=== PATIENT | female | born 1970 | race Caucasian/White ===

== ENCOUNTER 2017-07-16 11:03 | Inpatient (IN) | payer SELFPAY ==
[~2017-07-16 11:03] MED LIST: ALBU6.7H INH; ARIP30 PO; DOCU1CAP39 PO; KEPP500T3 PO; LEVO50TA4 PO; METF500 PO; MIRTA15 PO; PANT20 PO; TRAZ50TA4 PO
[2017-07-16] MEDS ORDERED: BENZTROPINE MESYLATE 2 MG/2 ML VIAL IM PRN (14:45)
[2017-07-16] MEDS ORDERED: BENZTROPINE MESYLATE 1 MG TAB PO PRN (14:45)
[2017-07-16] MEDS ORDERED: MAGNESIUM HYDROXIDE SUSP 30 ML CUP PO PRN (14:45)
[2017-07-16] MEDS ORDERED: ALUMINUM/MAGNESIUM/SIMETH 30 ML CUP PO PRN (14:45)
[2017-07-16] MEDS ORDERED: LORazepam 2 MG/ML VIAL IM PRN (14:45)
[2017-07-16] MEDS ORDERED: GLUCAGON 1 MG/ML VIAL OTHER PRN (14:45)
[2017-07-16] MEDS ORDERED: DEXTROSE 50% IN WATER 50 ML VIAL(D50) IV PRN (14:45)
[2017-07-16] MEDS ORDERED: LORazepam 1 MG TAB PO PRN (14:45)
[2017-07-16 15:39] LABS: AUTOMATED NEUTROPHIL # 4.7 TH/MM3 (1.8-7.7); BASOPHIL # 0.1 TH/MM3 (0-0.2); BASOPHIL % 0.6 % (0.0-2.0); EOSINOPHIL # 0.2 TH/MM3 (0-0.4); HEMATOCRIT 39.2 % (35.0-46.0); HEMO FLAGS DIFF FINAL; LYMPH % 42.6 % (9.0-44.0); LYMPHOCYTE # 4.2 TH/MM3 (1.0-4.8); MEAN CELL VOLUME 88.9 FL (80.0-100.0); MEAN CORPUSCULAR HEMOGLOBIN 30.9 PG (27.0-34.0); MEAN CORPUSCULAR HGB CONC 34.7 % (32.0-36.0); MONO % 6.6 % (0.0-8.0); NEUT % 48.2 % (16.0-70.0); PLATELET COUNT 236 TH/MM3 (150-450); RED BLOOD COUNT 4.41 MIL/MM3 (4.00-5.30); RED CELL DISTRIBUTION WIDTH 14.2 % (11.6-17.2); WHITE BLOOD COUNT 9.8 TH/MM3 (4.0-11.0)
[2017-07-16 15:58] LABS: ALT (GPT) 21 U/L (10-53); ANION GAP 9 MEQ/L (5-15); AST (GOT) 31 U/L (15-37); BICARBONATE 23.8 MEQ/L (21.0-32.0); BLOOD UREA NITROGEN 14 MG/DL (7-18); CHLORIDE 96 MEQ/L (98-107); GLOMERULAR FILTRATION RATE 71 ML/MIN (>89); POTASSIUM 4.1 MEQ/L (3.5-5.1); SODIUM (NA) 129 MEQ/L (136-145)
[2017-07-16] MEDS: INSULIN ASPART SUPPLEMENTAL SCALE SQ SCH ×2 (16:00→20:56)
[2017-07-16 16:01] LABS: ALKALINE PHOSPHATASE 60 U/L (45-117); TOTAL BILIRUBIN ADULT 0.9 MG/DL (0.2-1.0)
[2017-07-16] MEDS: metFORMIN HCL 500 MG TAB PO SCH (17:21)
[2017-07-16 18:05] VITALS: BP 103/65; PULSE 60; RESP 18; TEMP 98.2; O2SAT 95
[2017-07-16] MEDS: levETIRAcetam 500 MG TAB PO SCH (20:46)
[2017-07-16] MEDS: diphenhydrAMINE HCL 50 MG CAP PO PRN (20:58)
[2017-07-17] MEDS ORDERED: GABA300C5 PO (05:17)
[2017-07-17] MEDS: LEVOTHYROXINE SODIUM 50 MCG TAB PO SCH (06:00)
[2017-07-17 06:25] VITALS: BP 94/53; PULSE 56; RESP 16; TEMP 99; O2SAT 96
[2017-07-17] MEDS: INSULIN ASPART SUPPLEMENTAL SCALE SQ SCH ×4 (06:25→21:00)
[2017-07-17] MEDS: NICOTINE 21 MG/24 HR PATCH T-DERMAL SCH (09:00)
[2017-07-17] MEDS: REMOVE OLD PATCH T-DERMAL SCH (09:00)
[2017-07-17] MEDS: metFORMIN HCL 500 MG TAB PO SCH (09:18)
[2017-07-17] MEDS: PANTOPRAZOLE SOD 20 MG DELAYED RELEASE TAB PO SCH (09:18)
[2017-07-17] MEDS: levETIRAcetam 500 MG TAB PO SCH ×2 (09:18→22:51)
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
[2017-07-17 11:10] LABS: HDL CHOLESTEROL 23.3 MG/DL (40.0-60.0); LDL CHOLESTEROL 179 MG/DL (0-99)
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
[2017-07-17 16:33] LABS: HEMOGLOBIN A1a 1.1 %; HEMOGLOBIN Ao 81.9 %; HEMOGLOBIN F 1.3 %; HEMOGLOBIN LA1C 2.3 %; HEMOGLOBIN P3 4.2 %
[2017-07-17 18:00] VITALS: BP 101/54; PULSE 68; RESP 16; TEMP 98.7; O2SAT 93
[2017-07-17] MEDS: OLANZapine 5 MG TAB PO SCH (22:50)
[2017-07-17] MEDS: FLUoxetine HCL 20 MG CAP PO SCH (22:51)
[2017-07-18 06:01] VITALS: BP 100/57; PULSE 52; RESP 18; TEMP 98; O2SAT 98
[2017-07-18] MEDS: LEVOTHYROXINE SODIUM 50 MCG TAB PO SCH (06:32)
[2017-07-18] MEDS: INSULIN ASPART SUPPLEMENTAL SCALE SQ SCH ×4 (06:54→20:23)
[2017-07-18] MEDS: NICOTINE 21 MG/24 HR PATCH T-DERMAL SCH (07:35)
[2017-07-18] MEDS: REMOVE OLD PATCH T-DERMAL SCH (07:35)
[2017-07-18] MEDS: levETIRAcetam 500 MG TAB PO SCH ×2 (08:02→20:21)
[2017-07-18] MEDS: PANTOPRAZOLE SOD 20 MG DELAYED RELEASE TAB PO SCH (08:02)
--- NOTE | 2017-07-18 09:51 | HHI.PR ---
Subjective Remarks The patient said that she was tired. She had no acute complaints. She said her blood sugar fluctuates but it has come down some. Objective Vitals Vital Signs Date Time Temp Pulse Resp B/P (MAP) Pulse Ox O2 Delivery O2 Flow Rate FiO2 07/18/17 06:01 98.0 52 18 100/57 (71) 98 07/17/17 18:00 98.7 68 16 101/54 (70) 93 I/O 07/17/17 07/17/17 07/17/17 07/18/17 07/18/17 07/18/17 07:00 15:00 23:00 07:00 15:00 23:00 Intake Total 240 ml 960 ml 830 ml 360 ml Balance 240 ml 960 ml 830 ml 360 ml Intake Oral 240 ml 960 ml 830 ml 360 ml # Voids 3 2 2 2 Result Diagram: 07/16/17 1530 07/16/17 1530 Objective Remarks GENERAL: This is a well-nourished, well-developed patient, in no apparent distress. SKIN: No rashes, ecchymoses or lesions. Cool and dry. HEAD: Atraumatic. Normocephalic. No temporal or scalp tenderness. EYES: Pupils equal round and reactive. Extraocular motions intact. No scleral icterus. No injection or drainage. ENT: Nose without bleeding, purulent drainage or septal hematoma. Poor dentition. NECK: Trachea midline. No JVD or lymphadenopathy. Supple, nontender, no meningeal signs. CARDIOVASCULAR: Regular rate and rhythm. Grade 2 systolic murmur appreciated. RESPIRATORY: Clear to auscultation. Breath sounds equal bilaterally. No wheezes , rales, or rhonchi. GASTROINTESTINAL: Abdomen soft, non-tender, nondistended. No hepato-splenomegaly , or palpable masses. No guarding. MUSCULOSKELETAL: Extremities without clubbing, cyanosis, or edema. No joint tenderness, effusion, or edema noted. NEUROLOGICAL: Awake and alert. Cranial nerves II through XII intact. Motor and sensory grossly within normal limits. Five out of 5 muscle strength in all muscle groups. Normal speech. PSYCH: Mood and affect appropriate. Medications and IVs Current Medications Medications (Trade) Dose Ordered Sig/Jason Route Start Time Stop Time Status Last Admin (Ativan) 1 mg Q6H PRN PO 07/16/17 14:45 (Ativan Inj) 1 mg Q6H PRN IM 07/16/17 14:45 (Benadryl) 50 mg HS PRN PO 07/16/17 14:45 07/16/17 20:58 (Tylenol) 650 mg Q4H PRN PO 07/16/17 14:45 (Milk Of Magnesia Liq) 30 ml DAILY PRN PO 07/16/17 14:45 (Mag-Al Plus Susp Liq) 30 ml Q6H PRN PO 07/16/17 14:45 07/16/17 20:57 (Habitrol 21 Mg Patch.24 Hr) 1 patch DAILY T-DERMAL 07/17/17 09:00 (Cogentin) 1 mg Q12H PRN PO 07/16/17 14:45 (Cogentin Inj) 1 mg Q12H PRN IM 07/16/17 14:45 Miscellaneous Information 1 DAILY T-DERMAL 07/17/17 09:00 (D50w (Vial) Inj) 50 ml UNSCH PRN IV 07/16/17 14:45 (Glucagon Inj) 1 mg UNSCH PRN OTHER 07/16/17 14:45 (NovoLOG SUPPLEMENTAL SCALE) 1 ACHS SLIDING SCALE SQ 07/16/17 16:00 07/17/17 11:59 (Keppra) 500 mg BID PO 07/16/17 21:00 07/18/17 08:02 (Protonix) 20 mg DAILY PO 07/17/17 09:00 07/18/17 08:02 (Synthroid) 50 mcg DAILY@0600 PO 07/17/17 06:00 07/18/17 06:32 (ZyPREXA) 5 mg HS PO 07/17/17 21:00 07/17/17 22:50 (PROzac) 20 mg HS PO 07/17/17 21:00 07/17/17 22:51 A/P Assessment and Plan Depression The pt voices that she doesn't want to live anymore. - management per psychiatry. Seizure disorder The pt is supposed to be on Keppra but has not taken it. She recently ran out of gabapentin. She was hyponatremic on presentation at the OSH, so that may be the main contributing factor. - Keppra has been resumed. Continue. - outpt follow-up with neurology. - seizure precautions. - monitor sodium levels. Hyponatremia Chronic. Sodium stable at 129. - follow BMP. - fluid restriction if needed. - consider salt tabs. Diabetes The pt is on Humulin N/R as an outpt. A1c is 7.7%. Well controlled 07/18. - d/c metformin as the pt states she does not take it. - insulin sliding scale. - diabetic diet. Hyperlipidemia LDL is 179. - Start atorvastatin 20 mg daily. PPx: Ambulation Discharge Planning Per primary Epi Abdul DO Jul 18, 2017 09:51
[2017-07-18] MEDS ORDERED: ATORVASTATIN 20 MG TAB PO SCH (10:00)
--- NOTE | 2017-07-18 13:11 | HHI.PYPN ---
Subjective Remarks Patient complains of being tired. Does not wish to talk. Review of Systems Except as stated in HPI: all other systems reviewed are Neg Objective Alert: Yes [place]: Person, Place, Date, Situation Mood: Calm Affect: Euthymic Memory Intact: Immediate, Recent, Remote Hallucinations: Other Delusions: No Delusion Type: Other Suicidal: Ideation (no) Homicidal: Ideation (no) Insight/Judgment Fair Vitals/IOs Vital Signs Date Time Temp Pulse Resp B/P (MAP) Pulse Ox O2 Delivery O2 Flow Rate FiO2 07/18/17 06:01 98.0 52 18 100/57 (71) 98 Intake and Output 07/18/17 07/18/17 07/18/17 07:59 15:59 23:59 Intake Total 360 ml Balance 360 ml Assessment & Plan Problem List: (1) Bipolar disorder, current episode depressed, severe, without psychotic features ICD Codes: F31.4 - Bipolar disorder, current episode depressed, severe, without psychotic features Assessment & Plan Estimated LOS: days depressed Justification for Cont. Inpt. History of suicidal ideation Evin Villarreal MD Jul 18, 2017 13:11
[2017-07-18] MEDS: INSULIN HUMAN NPH 1,000 UNITS/10 ML VIAL SQ SCH (15:45)
[2017-07-18 17:56] VITALS: BP 101/67; PULSE 78; TEMP 97.6; O2SAT 98
[2017-07-18] MEDS: ATORVASTATIN 20 MG TAB PO SCH (20:21)
[2017-07-18] MEDS: FLUoxetine HCL 20 MG CAP PO SCH (20:21)
[2017-07-18] MEDS: OLANZapine 5 MG TAB PO SCH (20:22)
[2017-07-18 20:23] VITALS: BP 136/89; PULSE 80
[2017-07-19] MEDS: INSULIN ASPART SUPPLEMENTAL SCALE SQ SCH ×4 (05:08→20:38)
[2017-07-19] MEDS: LEVOTHYROXINE SODIUM 50 MCG TAB PO SCH (05:08)
[2017-07-19 06:00] VITALS: BP 90/55; PULSE 49; RESP 18; TEMP 97.6; O2SAT 94
[2017-07-19 06:02] VITALS: PULSE 62
[2017-07-19] MEDS: REMOVE OLD PATCH T-DERMAL SCH (07:09)
[2017-07-19] MEDS: NICOTINE 21 MG/24 HR PATCH T-DERMAL SCH (07:09)
[2017-07-19] MEDS: INSULIN HUMAN NPH 1,000 UNITS/10 ML VIAL SQ SCH (08:00)
[2017-07-19] MEDS: PANTOPRAZOLE SOD 20 MG DELAYED RELEASE TAB PO SCH (08:23)
[2017-07-19] MEDS: levETIRAcetam 500 MG TAB PO SCH ×2 (08:23→20:14)
[2017-07-19 08:28] LABS: BICARBONATE 25.3 MEQ/L (21.0-32.0); POTASSIUM 3.7 MEQ/L (3.5-5.1)
--- NOTE | 2017-07-19 10:10 | HHI.PR ---
Subjective Remarks The patient said that she was concerned about her thyroid function as she had to miss some doses of her levothyroxine at times. She also feels a fluttering/ burning sensation in her throat sometimes. She also mentioned how she was getting kicked out of her own property. Discussed with nursing. Objective Vitals Vital Signs Date Time Temp Pulse Resp B/P (MAP) Pulse Ox O2 Delivery O2 Flow Rate FiO2 07/19/17 06:02 62 07/19/17 06:00 97.6 49 18 90/55 (67) 94 07/18/17 20:23 80 136/89 (105) 07/18/17 17:56 97.6 78 101/67 (78) 98 I/O 07/18/17 07/18/17 07/18/17 07/19/17 07/19/17 07/19/17 07:00 15:00 23:00 07:00 15:00 23:00 Intake Total 360 ml 0 ml 120 ml Balance 360 ml 0 ml 120 ml Intake Oral 360 ml 0 ml 120 ml # Voids 2 1 Result Diagram: 07/16/17 1530 07/19/17 0757 Objective Remarks GENERAL: This is a well-nourished, well-developed patient, in no apparent distress. SKIN: No rashes, ecchymoses or lesions. Cool and dry. HEAD: Atraumatic. Normocephalic. No temporal or scalp tenderness. EYES: Pupils equal round and reactive. Extraocular motions intact. No scleral icterus. No injection or drainage. ENT: Nose without bleeding, purulent drainage or septal hematoma. Poor dentition. NECK: Trachea midline. No JVD or lymphadenopathy. Supple, nontender, no meningeal signs. CARDIOVASCULAR: Regular rate and rhythm. Grade 2 systolic murmur appreciated. RESPIRATORY: Clear to auscultation. Breath sounds equal bilaterally. No wheezes , rales, or rhonchi. GASTROINTESTINAL: Abdomen soft, non-tender, nondistended. No hepato-splenomegaly , or palpable masses. No guarding. MUSCULOSKELETAL: Extremities without clubbing, cyanosis, or edema. No joint tenderness, effusion, or edema noted. NEUROLOGICAL: Awake and alert. Cranial nerves II through XII intact. Motor and sensory grossly within normal limits. Five out of 5 muscle strength in all muscle groups. Normal speech. PSYCH: Anxious. Medications and IVs Current Medications Medications (Trade) Dose Ordered Sig/Jason Route Start Time Stop Time Status Last Admin (Ativan) 1 mg Q6H PRN PO 07/16/17 14:45 (Ativan Inj) 1 mg Q6H PRN IM 07/16/17 14:45 (Benadryl) 50 mg HS PRN PO 07/16/17 14:45 07/16/17 20:58 (Tylenol) 650 mg Q4H PRN PO 07/16/17 14:45 (Milk Of Magnesia Liq) 30 ml DAILY PRN PO 07/16/17 14:45 (Mag-Al Plus Susp Liq) 30 ml Q6H PRN PO 07/16/17 14:45 07/16/17 20:57 (Habitrol 21 Mg Patch.24 Hr) 1 patch DAILY T-DERMAL 07/17/17 09:00 (Cogentin) 1 mg Q12H PRN PO 07/16/17 14:45 (Cogentin Inj) 1 mg Q12H PRN IM 07/16/17 14:45 Miscellaneous Information 1 DAILY T-DERMAL 07/17/17 09:00 (D50w (Vial) Inj) 50 ml UNSCH PRN IV 07/16/17 14:45 (Glucagon Inj) 1 mg UNSCH PRN OTHER 07/16/17 14:45 (NovoLOG SUPPLEMENTAL SCALE) 1 ACHS SLIDING SCALE SQ 07/16/17 16:00 07/18/17 20:23 (Keppra) 500 mg BID PO 07/16/17 21:00 07/19/17 08:23 (Protonix) 20 mg DAILY PO 07/17/17 09:00 07/19/17 08:23 (Synthroid) 50 mcg DAILY@0600 PO 07/17/17 06:00 07/19/17 05:08 (ZyPREXA) 5 mg HS PO 07/17/17 21:00 07/18/17 20:22 (PROzac) 20 mg HS PO 07/17/17 21:00 07/18/17 20:21 (Lipitor) 20 mg HS PO 07/18/17 21:00 07/18/17 20:21 (NovoLIN N INJ) 10 units DAILY@08 SQ 07/18/17 15:45 07/19/17 08:00 A/P Assessment and Plan Depression The pt voices that she doesn't want to live anymore. - management per psychiatry. Seizure disorder The pt is supposed to be on Keppra but has not taken it. She recently ran out of gabapentin. She was hyponatremic on presentation at the OSH, so that may be the main contributing factor. - Keppra has been resumed. Continue. - outpt follow-up with neurology/ PCP. - seizure precautions. - monitor sodium levels. Hyponatremia Chronic. Sodium improved to 134 07/19. - follow BMP as needed. Diabetes The pt is on Humulin N/R as an outpt. A1c is 7.7%. Well controlled 07/19. - d/c metformin as the pt states she does not take it. - NPH 10 units daily. - insulin sliding scale. - diabetic diet. Hyperlipidemia LDL is 179. - Started atorvastatin 20 mg daily. PPx: Ambulation Discharge Planning Per Epi Lees DO Jul 19, 2017 10:10
[2017-07-19 18:43] VITALS: PULSE 63; RESP 17; TEMP 99; O2SAT 94
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
[2017-07-19 20:00] VITALS: BP 95/60
[2017-07-19] MEDS: OLANZapine 5 MG TAB PO SCH (20:14)
[2017-07-19] MEDS: FLUoxetine HCL 20 MG CAP PO SCH (20:14)
[2017-07-19] MEDS: ATORVASTATIN 20 MG TAB PO SCH (20:14)
[2017-07-19] MEDS: ACETAMINOPHEN 325 MG TAB PO PRN (20:14)
[2017-07-19] MEDS: diphenhydrAMINE HCL 50 MG CAP PO PRN (22:02)
[2017-07-20] MEDS: LEVOTHYROXINE SODIUM 50 MCG TAB PO SCH (05:24)
[2017-07-20 05:52] VITALS: BP 94/50; PULSE 50; RESP 16; TEMP 98.2; O2SAT 96
[2017-07-20] MEDS: INSULIN ASPART SUPPLEMENTAL SCALE SQ SCH ×4 (06:00→20:52)
[2017-07-20] MEDS: INSULIN HUMAN NPH 1,000 UNITS/10 ML VIAL SQ SCH (08:00)
[2017-07-20] MEDS: PANTOPRAZOLE SOD 20 MG DELAYED RELEASE TAB PO SCH (08:10)
[2017-07-20] MEDS: REMOVE OLD PATCH T-DERMAL SCH (08:10)
[2017-07-20] MEDS: levETIRAcetam 500 MG TAB PO SCH ×2 (08:10→20:45)
[2017-07-20] MEDS: NICOTINE 21 MG/24 HR PATCH T-DERMAL SCH (08:11)
[2017-07-20] MEDS ORDERED: RESP: ALBUTEROL 2.5 MG/IPRATROPIUM 0.5 MG NEB (SCH) NEB ONE (10:45)
--- NOTE | 2017-07-20 10:46 | HHI.PR ---
Subjective Remarks The patient was hoping she would be discharged soon. She also wanted to be tested for a urinary tract infection. Discussed with nursing. Objective Vitals Vital Signs Date Time Temp Pulse Resp B/P (MAP) Pulse Ox O2 Delivery O2 Flow Rate FiO2 07/20/17 05:52 98.2 50 16 94/50 (65) 96 07/19/17 20:00 95/60 (72) 07/19/17 18:43 99.0 63 17 94 I/O 07/19/17 07/19/17 07/19/17 07/20/17 07/20/17 07/20/17 06:59 14:59 22:59 06:59 14:59 22:59 Intake Total 0 ml 240 ml 600 ml 120 ml 240 ml Balance 0 ml 240 ml 600 ml 120 ml 240 ml Intake Oral 0 ml 240 ml 600 ml 120 ml 240 ml # Voids 1 1 3 Result Diagram: 07/16/17 1530 07/19/17 0757 Objective Remarks GENERAL: This is a well-nourished, well-developed patient, in no apparent distress. SKIN: No rashes, ecchymoses or lesions. Cool and dry. HEAD: Atraumatic. Normocephalic. No temporal or scalp tenderness. EYES: Pupils equal round and reactive. Extraocular motions intact. No scleral icterus. No injection or drainage. ENT: Nose without bleeding, purulent drainage or septal hematoma. Poor dentition. NECK: Trachea midline. No JVD or lymphadenopathy. Supple, nontender, no meningeal signs. CARDIOVASCULAR: Regular rate and rhythm. Grade 2 systolic murmur appreciated. RESPIRATORY: Scattered rhonchi noted. GASTROINTESTINAL: Abdomen soft, non-tender, nondistended. No hepato-splenomegaly , or palpable masses. No guarding. MUSCULOSKELETAL: Extremities without clubbing, cyanosis, or edema. No joint tenderness, effusion, or edema noted. NEUROLOGICAL: Awake and alert. Cranial nerves II through XII intact. Motor and sensory grossly within normal limits. Five out of 5 muscle strength in all muscle groups. Normal speech. PSYCH: Mood and affect appropriate. Medications and IVs Current Medications Medications (Trade) Dose Ordered Sig/Jason Route Start Time Stop Time Status Last Admin (Ativan) 1 mg Q6H PRN PO 07/16/17 14:45 (Ativan Inj) 1 mg Q6H PRN IM 07/16/17 14:45 (Benadryl) 50 mg HS PRN PO 07/16/17 14:45 07/19/17 22:02 (Tylenol) 650 mg Q4H PRN PO 07/16/17 14:45 07/19/17 20:14 (Milk Of Magnesia Liq) 30 ml DAILY PRN PO 07/16/17 14:45 (Mag-Al Plus Susp Liq) 30 ml Q6H PRN PO 07/16/17 14:45 07/16/17 20:57 (Habitrol 21 Mg Patch.24 Hr) 1 patch DAILY T-DERMAL 07/17/17 09:00 (Cogentin) 1 mg Q12H PRN PO 07/16/17 14:45 (Cogentin Inj) 1 mg Q12H PRN IM 07/16/17 14:45 Miscellaneous Information 1 DAILY T-DERMAL 07/17/17 09:00 (D50w (Vial) Inj) 50 ml UNSCH PRN IV 07/16/17 14:45 (Glucagon Inj) 1 mg UNSCH PRN OTHER 07/16/17 14:45 (NovoLOG SUPPLEMENTAL SCALE) 1 ACHS SLIDING SCALE SQ 07/16/17 16:00 07/19/17 20:38 (Keppra) 500 mg BID PO 07/16/17 21:00 07/20/17 08:10 (Protonix) 20 mg DAILY PO 07/17/17 09:00 07/20/17 08:10 (Synthroid) 50 mcg DAILY@0600 PO 07/17/17 06:00 07/19/17 05:08 (ZyPREXA) 5 mg HS PO 07/17/17 21:00 07/19/17 20:14 (PROzac) 20 mg HS PO 07/17/17 21:00 07/19/17 20:14 (Lipitor) 20 mg HS PO 07/18/17 21:00 07/19/17 20:14 (NovoLIN N INJ) 10 units DAILY@08 SQ 07/18/17 15:45 07/20/17 08:00 A/P Assessment and Plan Depression The pt voices that she doesn't want to live anymore. - management per psychiatry. Seizure disorder The pt is supposed to be on Keppra but has not taken it. She recently ran out of gabapentin. She was hyponatremic on presentation at the OSH, so that may be the main contributing factor. - Keppra has been resumed. Continue. - outpt follow-up with neurology/ PCP. - seizure precautions. - monitor sodium levels. Improved. Hyponatremia Chronic. Sodium improved to 134 07/19. - follow BMP as needed. Diabetes The pt is on Humulin N/R as an outpt. A1c is 7.7%. Well controlled 07/20. - d/c metformin as the pt states she does not take it. - NPH 10 units daily. - insulin sliding scale. - diabetic diet. Hyperlipidemia LDL is 179. - Started atorvastatin 20 mg daily. UTI The pt complains of UTI symptoms. - UA pending. PPx: Ambulation Discharge Planning Per Epi Lees DO Jul 20, 2017 10:46
[2017-07-20 12:59] LABS: BLOOD, URINE NEG (NEG); CALCIUM OXALATE CRYSTALS,URINE RARE /hpf; COMMENT (UR) CULT NOT INDICATED; CULTURE IF INDICATED CULT NOT INDICATED; GLUCOSE,URINE 70 mg/dL (NEG); KETONE, URINE NEG (NEG); MUCUS URINE FEW /lpf (OCC); NITRITE,URINE NEG (NEG); URINE COLOR YELLOW (YELLW/STRAW)
--- NOTE | 2017-07-20 14:32 | HHI.PYPN ---
Subjective Remarks Patient seen for follow-up, chart review. Patient found lying on hospital bed, cooperative interview today. Patient states that she had difficulty sleeping over the weekend and that she was mostly "bored". She states that her mood is "a little depressed" but no longer endorsing suicidal ideations. Patient states being worried about where she will go after discharge as she currently left her property to go to a homeless [facility] prior to admission. Patient uncertain whether she will return to a friend's house or be referred to the [facility]. Patient reports tolerating medications well denies any adverse drug reactions. Review of Systems Except as stated in HPI: all other systems reviewed are Neg Objective Alert: Yes [place]: Person, Place, Date, Situation Mood: Calm Affect: Euthymic Memory Intact: Immediate, Recent, Remote Hallucinations: Other Delusions: No Delusion Type: Other Suicidal: Ideation (no) Homicidal: Ideation (no) Insight/Judgment Fair insight, impulse control and judgment Labs Labs reviewed. Test 07/20/17 10:40 Urine Color YELLOW Urine Turbidity CLEAR Urine pH 6.0 Urine Specific [place] 1.013 Urine Protein NEG mg/dL Urine Glucose (UA) 70 mg/dL Urine Ketones NEG mg/dL Urine Occult Blood NEG Urine Nitrite NEG Urine Bilirubin NEG Urine Urobilinogen LESS THAN 2.0 MG/DL Urine Leukocyte Esterase NEG Urine RBC LESS THAN 1 /hpf Urine WBC LESS THAN 1 /hpf Urine Calcium Oxalate Crystals RARE /hpf Urine Mucus FEW /lpf Microscopic Urinalysis Comment CULT NOT INDICATED Vitals/IOs Vital Signs Date Time Temp Pulse Resp B/P (MAP) Pulse Ox O2 Delivery O2 Flow Rate FiO2 07/20/17 05:52 98.2 50 16 94/50 (65) 96 Intake and Output 07/20/17 07/20/17 07/21/17 08:00 16:00 00:00 Intake Total 120 ml 1200 ml Balance 120 ml 1200 ml Assessment & Plan Problem List: (1) Bipolar disorder, current episode depressed, severe, without psychotic features ICD Codes: F31.4 - Bipolar disorder, current episode depressed, severe, without psychotic features Status: Acute Assessment & Plan Patient this time appears to be responding well to current treatment, no longer endorsing suicidality. Patient at this time preoccupied with discharge plan as she currently is homeless but is considering staying with a friend. Continue current treatment, discharge planning in progress Justification for Cont. Inpt. At risk for further decompensation if at lower level of care. Nasim Tadeo MD Jul 20, 2017 14:32
[2017-07-20] MEDS: ACETAMINOPHEN 325 MG TAB PO PRN ×2 (15:18→20:16)
[2017-07-20 19:03] VITALS: BP 102/58; PULSE 57; RESP 18; TEMP 97.9; O2SAT 98
[2017-07-20] MEDS: OLANZapine 5 MG TAB PO SCH (20:45)
[2017-07-20] MEDS: FLUoxetine HCL 20 MG CAP PO SCH (20:45)
[2017-07-20] MEDS: ATORVASTATIN 20 MG TAB PO SCH (20:45)
[2017-07-21] MEDS: LEVOTHYROXINE SODIUM 50 MCG TAB PO SCH (06:00)
[2017-07-21 06:17] VITALS: BP 104/58; PULSE 52; RESP 16; TEMP 97.4; O2SAT 97
[2017-07-21] MEDS: INSULIN ASPART SUPPLEMENTAL SCALE SQ SCH ×2 (06:17→11:00)
--- NOTE | 2017-07-21 08:02 | HHI.PYPN ---
Subjective Remarks Patient seen for follow, chart reviewed. As per nursing report patient continues to feel okay last night did receive Ativan once last evening due to feeling restless. Patient found lying in hospital bed was able to wake a friend of today. Patient states feeling "alright" but continues to feel stressed about where she will be discharged to. Patient states that she may be able stay with her sister which will be confirmed later this afternoon. Patient reports she was feeling restless at night since she has started her medications. Patient reports her mood being "better" denies any suicidality stating "I don't want to and states that she wants live because she has much to live for. Patient denies any perceptual disturbances or delusions. Review of Systems Except as stated in HPI: all other systems reviewed are Neg Objective Alert: Yes [place]: Person, Place, Date, Situation Mood: Calm Affect: Euthymic Memory Intact: Immediate, Recent, Remote Hallucinations: Other Delusions: No Delusion Type: Other Suicidal: Ideation (no) Homicidal: Ideation (no) Insight/Judgment Fair insight, impulse control and judgment Labs Labs reviewed. Test 07/20/17 10:40 Urine Color YELLOW Urine Turbidity CLEAR Urine pH 6.0 Urine Specific [place] 1.013 Urine Protein NEG mg/dL Urine Glucose (UA) 70 mg/dL Urine Ketones NEG mg/dL Urine Occult Blood NEG Urine Nitrite NEG Urine Bilirubin NEG Urine Urobilinogen LESS THAN 2.0 MG/DL Urine Leukocyte Esterase NEG Urine RBC LESS THAN 1 /hpf Urine WBC LESS THAN 1 /hpf Urine Calcium Oxalate Crystals RARE /hpf Urine Mucus FEW /lpf Microscopic Urinalysis Comment CULT NOT INDICATED Vitals/IOs Vital Signs Date Time Temp Pulse Resp B/P (MAP) Pulse Ox O2 Delivery O2 Flow Rate FiO2 07/21/17 06:17 97.4 52 16 104/58 (30) 97 Assessment & Plan Problem List: (1) Bipolar disorder, current episode depressed, severe, without psychotic features ICD Codes: F31.4 - Bipolar disorder, current episode depressed, severe, without psychotic features Status: Acute Assessment & Plan Patient at this time reports improved mood and denies feeling depressed or having any suicidal ideations for the past couple of days. Patient states that she is currently feeling better and plans on continuing treatment upon discharge. Patient is unsure of where she will be discharged to put currently working on this plan. Patient reported some restlessness at night which may be due to side effects of antipsychotic likely akathisia. We will start benztropine 0.5 mg at bedtime for akathisia. Discharge planning in progress Justification for Cont. Inpt. At risk for further decompensation if at lower level of care. Nasim Tadeo MD Jul 21, 2017 08:02
[2017-07-21] MEDS ORDERED: PILL SPLITTER OTHER PRN (08:15)
[2017-07-21] MEDS: REMOVE OLD PATCH T-DERMAL SCH (09:00)
[2017-07-21] MEDS: NICOTINE 21 MG/24 HR PATCH T-DERMAL SCH (09:00)
[2017-07-21] MEDS: levETIRAcetam 500 MG TAB PO SCH (09:16)
[2017-07-21] MEDS: PANTOPRAZOLE SOD 20 MG DELAYED RELEASE TAB PO SCH (09:16)
[2017-07-21] MEDS: INSULIN HUMAN NPH 1,000 UNITS/10 ML VIAL SQ SCH (09:19)
--- NOTE | 2017-07-21 11:07 | HHI.PR ---
Subjective Remarks The patient was resting comfortably. She said she was feeling better. No concerns from nursing. Objective Vitals Vital Signs Date Time Temp Pulse Resp B/P (MAP) Pulse Ox O2 Delivery O2 Flow Rate FiO2 07/21/17 06:17 97.4 52 16 104/58 (73) 97 07/20/17 19:03 97.9 57 18 102/58 (73) 98 I/O 07/20/17 07/20/17 07/20/17 07/21/17 07/21/17 07/21/17 06:59 14:59 22:59 06:59 14:59 22:59 Intake Total 120 ml 1200 ml 240 ml 120 ml Balance 120 ml 1200 ml 240 ml 120 ml Intake Oral 120 ml 1200 ml 240 ml 120 ml # Voids 3 1 2 2 # Bowel Movements 1 Result Diagram: 07/19/17 0757 Objective Remarks GENERAL: This is a well-nourished, well-developed patient, in no apparent distress. SKIN: No rashes, ecchymoses or lesions. Cool and dry. HEAD: Atraumatic. Normocephalic. No temporal or scalp tenderness. EYES: Pupils equal round and reactive. Extraocular motions intact. No scleral icterus. No injection or drainage. ENT: Nose without bleeding, purulent drainage or septal hematoma. Poor dentition. NECK: Trachea midline. No JVD or lymphadenopathy. Supple, nontender, no meningeal signs. CARDIOVASCULAR: Regular rate and rhythm. Grade 2 systolic murmur appreciated. RESPIRATORY: Scattered rhonchi noted. GASTROINTESTINAL: Abdomen soft, non-tender, nondistended. No hepato-splenomegaly , or palpable masses. No guarding. MUSCULOSKELETAL: Extremities without clubbing, cyanosis, or edema. No joint tenderness, effusion, or edema noted. NEUROLOGICAL: Awake and alert. Cranial nerves II through XII intact. Motor and sensory grossly within normal limits. Five out of 5 muscle strength in all muscle groups. Normal speech. PSYCH: Mood and affect appropriate. Medications and IVs Current Medications Medications (Trade) Dose Ordered Sig/Jason Route Start Time Stop Time Status Last Admin (Ativan) 1 mg Q6H PRN PO 07/16/17 14:45 07/21/17 00:21 (Ativan Inj) 1 mg Q6H PRN IM 07/16/17 14:45 (Benadryl) 50 mg HS PRN PO 07/16/17 14:45 07/19/17 22:02 (Tylenol) 650 mg Q4H PRN PO 07/16/17 14:45 07/20/17 20:16 (Milk Of Magnesia Liq) 30 ml DAILY PRN PO 07/16/17 14:45 (Mag-Al Plus Susp Liq) 30 ml Q6H PRN PO 07/16/17 14:45 07/16/17 20:57 (Habitrol 21 Mg Patch.24 Hr) 1 patch DAILY T-DERMAL 07/17/17 09:00 (Cogentin) 1 mg Q12H PRN PO 07/16/17 14:45 (Cogentin Inj) 1 mg Q12H PRN IM 07/16/17 14:45 Miscellaneous Information 1 DAILY T-DERMAL 07/17/17 09:00 07/21/17 09:00 (D50w (Vial) Inj) 50 ml UNSCH PRN IV 07/16/17 14:45 (Glucagon Inj) 1 mg UNSCH PRN OTHER 07/16/17 14:45 (NovoLOG SUPPLEMENTAL SCALE) 1 ACHS SLIDING SCALE SQ 07/16/17 16:00 07/20/17 20:52 (Keppra) 500 mg BID PO 07/16/17 21:00 07/21/17 09:16 (Protonix) 20 mg DAILY PO 07/17/17 09:00 07/21/17 09:16 (Synthroid) 50 mcg DAILY@0600 PO 07/17/17 06:00 07/19/17 05:08 (ZyPREXA) 5 mg HS PO 07/17/17 21:00 07/20/17 20:45 (PROzac) 20 mg HS PO 07/17/17 21:00 07/20/17 20:45 (Lipitor) 20 mg HS PO 07/18/17 21:00 07/20/17 20:45 (NovoLIN N INJ) 10 units DAILY@08 SQ 07/18/17 15:45 07/21/17 09:19 (Cogentin) 0.5 mg HS PO 07/21/17 21:00 (Pill Splitter) 1 ea UNSCH PRN OTHER 07/21/17 08:15 A/P Assessment and Plan Depression The pt voices that she doesn't want to live anymore. - management per psychiatry. Seizure disorder The pt is supposed to be on Keppra but has not taken it. She recently ran out of gabapentin. She was hyponatremic on presentation at the OSH, so that may be the main contributing factor. - Keppra has been resumed. Continue. - outpt follow-up with neurology/ PCP. - seizure precautions. - monitor sodium levels. Improved. Hyponatremia Chronic. Sodium improved to 134 07/19. - follow BMP as needed. Diabetes The pt is on Humulin N/R as an outpt. A1c is 7.7%. Well controlled 07/21. - d/c metformin as the pt states she does not take it. - NPH 10 units daily. - insulin sliding scale. - diabetic diet. Hyperlipidemia LDL is 179. - Started atorvastatin 20 mg daily. UTI The pt complains of UTI symptoms. UA unremarkable. - No treatment indicated. PPx: Ambulation Discharge Planning Per primary Epi Abdul DO Jul 21, 2017 11:07
[2017-07-21] MEDS ORDERED: OLAN5TAB PO (12:20)
[2017-07-21] MEDS ORDERED: ATOR20TA15 PO (12:20)
[2017-07-21] MEDS ORDERED: NOVONP2 SQ (12:20)
[2017-07-21] MEDS ORDERED: LEVO.05 PO (12:20)
[2017-07-21] MEDS ORDERED: PANT20 PO (12:20)
[2017-07-21] MEDS ORDERED: FLUO20CA12 PO (12:20)
[2017-07-21] MEDS ORDERED: LEVE500 PO (12:20)
[2017-07-21] MEDS ORDERED: Benztropine PO (12:20)
[2017-07-21] MEDS ORDERED: BENZTROPINE MESYLATE 1 MG TAB PO SCH (21:00)
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
== END 2017-07-21 13:35 | disposition home or self-care (01) | DRG 885 ==
LOC: H4EA 14:05
PROVIDERS: ADMIT Student in an Organized Health Care Education/Training Program; ATTEND Student in an Organized Health Care Education/Training Program
DX: F31.4 Bipolar disorder, current episode depressed, severe, without psychotic features (principal); R45.851 Suicidal ideations; E87.1 Hypo-osmolality and hyponatremia; N39.0 Urinary tract infection, site not specified; E11.9 Type 2 diabetes mellitus without complications; G40.909 Epilepsy, unspecified, not intractable, without status epilepticus; E03.9 Hypothyroidism, unspecified; Z59.0 Homelessness; G47.00 Insomnia, unspecified; K59.00 Constipation, unspecified; I10 Essential (primary) hypertension; J44.9 Chronic obstructive pulmonary disease, unspecified; F17.210 Nicotine dependence, cigarettes, uncomplicated; Z79.4 Long term (current) use of insulin; E78.5 Hyperlipidemia, unspecified
CPT/HCPCS: 80048; 80053; 80061; 81001; 82948; 83036; 83735; 84100; 84443; 85025; J1815; Q0163

== ENCOUNTER 2018-10-17 15:48 | Inpatient (IN) ==
--- NOTE | 2018-10-17 18:20 | ED ---
HPI General Chief Complaint: Respiratory Symptoms Stated Complaint: flu like symptoms Time Seen by Provider: 10/17/18 18:03 Source: patient Mode of arrival: ambulatory Limitations: no limitations History of Present Illness HPI Narrative: Patient is a 48-year-old smoker here today for productive cough, wheezing, bilateral ear pressure, chest congestion, and wheezing times 2 weeks. No sick contacts that she is aware of. She does smoke approximately pack a day for the last 20 years she does have a known history of COPD and is taking on ANORO as well as albuterol inhaler daily with no relief of symptoms. She is also an insulin-dependent diabetic and takes lisinopril for hypertension. Denies sore throat, body aches, fever, neck pain, chest pain, abdominal pain, back pain. Patient was given albuterol and Atrovent unit dose treatments x3. Decadron 8 mg IM. Rocephin IV and Zithromax. Reexamination patient still has moderate amount of wheezing bilaterally and rhonchi bilaterally. Lactic acid 2.9. Patient will be admitted for pneumonia and acute exacerbation of COPD and hyperglycemia. Novolin R 6 units IV given. Normal saline solution 100 cc an hour. Related Data Home Medications Medication Instructions Recorded Confirmed lisinopril 10 mg PO DAILY 10/17/18 10/17/18 pantoprazole 20 mg PO BID 10/17/18 10/17/18 cyclobenzaprine 10 mg PO HS 10/18/18 10/18/18 gabapentin 300 mg PO TID 10/18/18 10/18/18 insulin NPH isoph U-100 human 10 unit SUBCUT QPM 10/18/18 10/18/18 [Humulin N NPH U-100 Insulin] insulin NPH isoph U-100 human 20 unit SUBCUT QAM 10/18/18 10/18/18 [Humulin N NPH U-100 Insulin] insulin regular human [Humulin R 1 sliding scale dose SUBCUT TID 10/18/18 Regular U-100 Insuln] lactulose 5 g PO DAILY 10/18/18 10/18/18 Allergies Allergy/AdvReac Type Severity Reaction Status Date / Time doxycycline AdvReac Severe VOMITING Verified 10/18/18 10:04 minocycline AdvReac Severe VOMITING Verified 10/18/18 10:04 Tetracyclines AdvReac Severe Vomiting Verified 11/26/18 10:04 tigecycline AdvReac Severe VOMITING Verified 10/18/18 10:04 Review of Systems ROS: all other systems reviewed are negative [facility] Medical History Medical History Diabetes (Acute) GERD (gastroesophageal reflux disease) (Acute) Hypertension (Acute) Social History Social History Substance History: No History of Abuse Smoking Status: Heavy tobacco smoker Tobacco Type: Cigarettes How Often Do You Have a Drink Containing Alcohol: Never Recent Travel in [facility] within the Last 8 Weeks: No Recent Out of Country Travel within the Last 8 Weeks: No Immunization History Tetanus Immunization: <5 Years Exam Narrative Exam Narrative: GENERAL: Pt awake, alert, oriented. No acute distress. SKIN: Focused skin assessment warm/dry. HEAD: Atraumatic. Normocephalic. EYES: Pupils equal and round. No scleral icterus. No injection or drainage. ENT: No nasal bleeding or discharge. Mucous membranes pink and moist. Negative lymphadenopathy bilaterally positive erythema to posterior pharynx no facial pain with palpation. Mild facial tenderness with palpation, denies current dizziness. (+) clear fluid behind TMs bilaterally. TMs pearly grimes. NECK: Trachea midline. No JVD. CARDIOVASCULAR: Regular rate and rhythm. No murmur appreciated. RESPIRATORY: No accessory muscle use. Inspiratory and expiratory wheezing on auscultation. (+) green mucus with coughint and blowing nares. Breath sounds equal bilaterally. GASTROINTESTINAL: Abdomen soft, non-tender, nondistended. Hepatic and splenic margins not palpable. MUSCULOSKELETAL: No obvious deformities. No clubbing. No cyanosis. No edema. NEUROLOGICAL: Awake and alert. No obvious cranial nerve deficits. Motor grossly within normal limits. Normal speech. PSYCHIATRIC: Appropriate mood and affect; insight and judgment normal. Course Initial Documented Vital Signs Temperature 98.2 F 10/17/18 15:52 Pulse Rate 81 10/17/18 15:52 Respiratory Rate 16 10/17/18 15:52 Blood Pressure 136/66 10/17/18 15:52 Pulse Oximetry 95 10/17/18 15:52 Last Documented Vital Signs Temperature 98.3 F 10/18/18 09:58 Pulse Rate 82 10/18/18 09:58 Respiratory Rate 20 10/18/18 09:58 Blood Pressure 130/71 10/18/18 09:58 Pulse Oximetry 94 L 10/18/18 09:58 Medical Decision Making MDM Narrative Medical decision making narrative: Medical decision making narrative: During the course of the patients emergency department visit, the patients history, examination, and differential diagnosis were reviewed with the patient. The patient was placed on a sales technician with oximetry and frequent blood pressure monitoring. The patient was initially provided DuoNeb's x3, chest x-ray, influenza, and steroid injection IM. I went to evaluate her after these were done chest x-ray does show mid pneumonia her influenza test is negative but she is not doing any better after her duo nebs. She states that she still feels very worn down and like she cannot get a good deep breath there is significant wheezing throughout. At that time I ordered IV access CBC CMP lactic acid cultures and will work on getting her admitted we will also give her IV Rocephin and Zithromax. Labs significantly delayed due to need for recollect. Signed patient out to Dr. Verdin at 2300. Patient was seen and examined by me. Patient will be admitted for pneumonia, acute exacerbation COPD and hyperglycemia. Medical Screen Exam Complete: Yes Emergency Medical Condition: Yes Medical Screen Exam Complete: Yes Emergency Medical Condition: Yes Differential Diagnosis Differential Diagnosis: Pneumonia, bronchitis, copd exacerbation, influenza Lab Data Lab results reviewed: Yes I reviewed the patient's lab results. Result diagrams: 10/18/18 03:56 10/18/18 03:56 Lab Results 10/17/18 10/17/18 10/18/18 Range/Units 21:37 21:37 00:06 WBC 11.9 H (4.0-11.0) th/mm3 RBC 4.09 (4.00-5.30) mil/mm3 Hgb 12.5 (11.6-15.3) gm/dL Hct 36.6 (35.0-46.0) % MCV 89.5 (80.0-100.0) fL MCH 30.6 (27.0-34.0) pg MCHC 34.3 (32.0-36.0) % RDW 13.5 (11.6-17.2) % Plt Count 279 (150-450) th/mm3 MPV 8.7 (7.0-11.0) fL Neut % (Auto) 87.0 H (16.0-70.0) % Lymph % (Auto) 11.3 (9.0-44.0) % Ness % (Auto) 1.1 (0.0-8.0) % Eos % (Auto) 0.3 (0.0-4.0) % Baso % (Auto) 0.3 (0.0-2.0) % Neut # (Auto) 10.4 H (1.8-7.7) th/mm3 Lymph # (Auto) 1.3 (1.0-4.8) th/mm3 Ness # (Auto) 0.1 (0.0-0.9) th/mm3 Eos # (Auto) 0.0 (0.0-0.4) th/mm3 Baso # (Auto) 0.0 (0.0-0.2) th/mm3 WBC Differential . Differential Comment Auto diff final Sodium 127 L (136-145) meq/L Potassium 4.2 (3.5-5.1) meq/L Chloride 97 L (98-107) meq/L Carbon Dioxide 22.2 (21.0-32.0) meq/L Anion Gap 8 (5-15) meq/L BUN 5 L (7-18) mg/dL Creatinine 0.93 (0.50-1.00) mg/dL Estimated GFR 64 L (>89) mL/min Random Glucose 516 H* (74-106) mg/dL Lactic Acid 2.9 H (0.4-2.0) mmol/L Calcium 8.3 L (8.5-10.1) mg/dL Total Bilirubin 0.1 L (0.2-1.0) mg/dL AST 17 (15-37) U/L ALT 18 (10-53) U/L Alkaline Phosphatase 80 (45-117) U/L Troponin I Less than 0.02 L (0.02-0.05) ng/mL Total Protein 7.7 (6.4-8.2) g/dL Albumin 3.2 L (3.4-5.0) g/dL TSH 0.836 (0.358-3.740) uIU/mL 10/18/18 10/18/18 10/18/18 Range/Units 03:56 03:56 03:56 WBC 8.8 (4.0-11.0) th/mm3 RBC 3.92 L (4.00-5.30) mil/mm3 Hgb 12.2 (11.6-15.3) gm/dL Hct 35.4 (35.0-46.0) % MCV 90.4 (80.0-100.0) fL MCH 31.1 (27.0-34.0) pg MCHC 34.4 (32.0-36.0) % RDW 13.5 (11.6-17.2) % Plt Count 250 (150-450) th/mm3 MPV 8.0 (7.0-11.0) fL Neut % (Auto) 82.1 H (16.0-70.0) % Lymph % (Auto) 16.6 (9.0-44.0) % Ness % (Auto) 0.8 (0.0-8.0) % Eos % (Auto) 0.0 (0.0-4.0) % Baso % (Auto) 0.5 (0.0-2.0) % Neut # (Auto) 7.2 (1.8-7.7) th/mm3 Lymph # (Auto) 1.5 (1.0-4.8) th/mm3 Ness # (Auto) 0.1 (0.0-0.9) th/mm3 Eos # (Auto) 0.0 (0.0-0.4) th/mm3 Baso # (Auto) 0.0 (0.0-0.2) th/mm3 WBC Differential . Differential Comment Auto diff final Sodium 131 L (136-145) meq/L Potassium 4.2 (3.5-5.1) meq/L Chloride 101 (98-107) meq/L Carbon Dioxide 21.7 (21.0-32.0) meq/L Anion Gap 8 (5-15) meq/L BUN 6 L (7-18) mg/dL Creatinine 0.85 (0.50-1.00) mg/dL Estimated GFR 71 L (>89) mL/min Random Glucose 333 H D (74-106) mg/dL Lactic Acid 3.7 H (0.4-2.0) mmol/L Calcium 8.5 (8.5-10.1) mg/dL Total Bilirubin 0.1 L (0.2-1.0) mg/dL AST 15 (15-37) U/L ALT 19 (10-53) U/L Alkaline Phosphatase 81 (45-117) U/L Troponin I (0.02-0.05) ng/mL Total Protein 7.6 (6.4-8.2) g/dL Albumin 3.2 L (3.4-5.0) g/dL TSH (0.358-3.740) uIU/mL Imaging Data Attestation: I personally reviewed and interpreted this imaging study as follows : Radiologist's impression: Chest X-Ray 10/17/18 18:14 CONCLUSION: Mild patchy pneumonia of both mid and lower lungs. Discharge Plan Discharge Disposition Patient Disposition: 30 Still Patient Discharge Details Diagnosis: Pneumonia, Acute hyperglycemia, COPD with acute exacerbation, Acute hyponatremia Physicians Team ED Provider: Chase Verdin ED Midlevel Provider: Kimberlee Schultz Primary Care Provider: Primary Care Chloé Clarke Attending Provider: Zac Jean Status ED Status: Left Department Discharge Information Discharge Date/Time: 10/18/18 10:52
--- NOTE | 2018-10-17 19:55 | XR ---
EXAM DATE: 10/17/2018 7:42 PM EST AGE/SEX: 48 years / Female INDICATIONS: . Cough. CLINICAL DATA: This is the patient's initial encounter. Patient reports that signs and symptoms have been present for 2 weeks and indicates a pain score of 0/10. MEDICAL/SURGICAL HISTORY: None. None. COMPARISON: [facility] [place], CHEST SINGLE AP, 03/13/2016. . FINDINGS: Mild patchy airspace opacities involve both lungs, mostly mid and lower lung zones. No dense or confl uent consolidation. No pleural effusion. No pneumothorax. Normal, stable heart size. Mild S shaped thoracolumbar curvature unchanged. CONCLUSION: Mild patchy pneumonia of both mid and lower lungs. Electronically signed by: Edson Negro MD 10/17/2018 7:53 PM EST
[2018-10-17] MEDS ORDERED: Azithromycin Inj 500 MG in Sodium Chlor 0.9% Inj 250 ML IV.SIG SCH (22:00)
[2018-10-17 22:21] LABS: Baso % (Auto) 0.3 % (0.0-2.0); Eos % (Auto) 0.3 % (0.0-4.0); Hematocrit 36.6 % (35.0-46.0); Hemoglobin 12.5 gm/dL (11.6-15.3); Lymph # (Auto) 1.3 th/mm3 (1.0-4.8); Lymph % (Auto) 11.3 % (9.0-44.0); Mean Corpuscular HGB Conc 34.3 % (32.0-36.0); Mean Corpuscular Hemoglobin 30.6 pg (27.0-34.0); Mean Corpuscular Volume 89.5 fL (80.0-100.0); Mean Platelet Volume 8.7 fL (7.0-11.0); Mono # (Auto) 0.1 th/mm3 (0.0-0.9); Mono % (Auto) 1.1 % (0.0-8.0); Neut # (Auto) 10.4 th/mm3 (1.8-7.7); Platelet Count 279 th/mm3 (150-450); Red Blood Count 4.09 mil/mm3 (4.00-5.30); Red Cell Distribution Width 13.5 % (11.6-17.2); White Blood Count 11.9 th/mm3 (4.0-11.0)
[2018-10-18 00:58] LABS: Alanine Aminotransferase 18 U/L (10-53); Albumin 3.2 g/dL (3.4-5.0); Alkaline Phosphatase 80 U/L (45-117); Anion Gap 8 meq/L (5-15); Aspartate Aminotransferase 17 U/L (15-37); Blood Urea Nitrogen 5 mg/dL (7-18); Calcium 8.3 mg/dL (8.5-10.1); Carbon Dioxide 22.2 meq/L (21.0-32.0); Chloride 97 meq/L (98-107); Glomerular Filtration Rate 64 mL/min (>89); Glucose,Random 516 mg/dL (74-106); Potassium 4.2 meq/L (3.5-5.1); Sodium 127 meq/L (136-145); Thyroid Stimulating Hormone 0.836 uIU/mL (0.358-3.740); Total Protein 7.7 g/dL (6.4-8.2)
[2018-10-18] MEDS ORDERED: Benzonatate 100 MG Capsule PO ONE (01:01)
[2018-10-18] MEDS ORDERED: Bisacodyl 10 MG Supp RECTAL PRN (01:29)
[2018-10-18] MEDS ORDERED: Dextrose 50% in Water 50 ML Vial IV.PUSH PRN (01:29)
[2018-10-18] MEDS ORDERED: Acetaminophen 325 MG Tablet PO PRN (01:29)
[2018-10-18] MEDS: Sod Chloride 0.9% Inj 1,000 ML IV.CONT SCH ×3 (01:40→21:38)
--- NOTE | 2018-10-18 02:46 | P.HPIM ---
History of Present Illness Primary Care Physician: No Primary Care Physician History of Present Illness: This is a 48-year-old female with a PMH of HTN, DM, COPD, Tobacco Abuse and GERD who presented to the ER with complaints of SOB and wheezing for approx 2wks. Has been using home Neb/MDI w/ minimal relief. Notes associated productive cough w/ yellow-colored sputum. Denies chest pain, fever, chills or sick contacts. On arrival, BP 136/66, HR 81, O2 sat 95% on RA, Afebrile. WBC 11.9. Na 127. BS 516. Lactic Acid 2.9. Troponin negative. CXR with mild patchy pneumonia of mid and lower lungs. S/p DuoNeb, Solu-Medrol, Rocephin/ Zithro in ER. - Diagnosis (1) PNA (pneumonia) (2) COPD (chronic obstructive pulmonary disease) (3) Lactic acidosis (4) DM (diabetes mellitus) Inpatient Certification: I certify that the inpatient services were ordered in accordance with Medicare regulations governing the order. This includes certification that hospital inpatient services are reasonable and necessary and in the case of services not specified as inpatient-only under 42 CFR 419.22(n), that they are appropriately provided as inpatient services in accordance to with the 2-midnight benchmark under 43 CFR 412.3(e) Estimated Total Length of Stay (Days): 2 Plans for Post Hospital Care: Not yet determined Review of Systems PAST FAMILY HISTORY: Reviewed. No h/o DM or CAD All other systems reviewed negative except as stated in HPI [facility] - History History Provided By: Patient - Medical History Medical History: Medical History (Last Updated 10/17/18 @ 18:10 by Judy Dent) Diabetes GERD (gastroesophageal reflux disease) Hypertension - Tobacco History Tobacco Use In Past 30 Days: Yes Smoking Status: Heavy tobacco smoker Tobacco Type: Cigarettes - Alcohol History How Often Do You Have a Drink Containing Alcohol: Never - Substance Use History Substance History: No History of Abuse - Travel History Recent Travel in the [place] Within the Last 8 Weeks: No Recent Travel Out of the Country Within the Last 8 Weeks: No - Immunization History Tetanus Immunization: <5 Years Medications and Allergies Active Medications: Active Medications Acetaminophen (Tylenol) 650 mg PO Q4H PRN PRN Reason: Temp > 100.4 Al Hydroxide/Mg Hydroxide (Milk Of Magnesia Liq) 30 ml PO Q12H PRN PRN Reason: Mild Constipation Albuterol (Duoneb Neb (Prn)) 1 ampul NEB Q4HR NEB PRN PRN Reason: SOB/WHEEZING Bisacodyl (Dulcolax Supp) 10 mg RECTAL DAILY PRN PRN Reason: SEVERE CONSITIPATION Budesonide/Formoterol Fumarate (Symbicort 160/4.5 Mcg Inh) 2 puff INH BID ROHIT Dextrose (D50w Vial) 50 ml IV.PUSH UNSCH PRN PRN Reason: PER HYPOGLYCEMIA PROTOCOL Glucagon (Glucagon Inj) 1 mg OTHER PRN PRN PRN Reason: for Hypoglycemia Protocol Guaifenesin (Mucinex Er) 600 mg PO BID ROHIT Ceftriaxone Sodium 2,000 mg/ (Sodium Chloride) 100 mls @ 200 mls/hr IV.SIG Q24H ROHIT Last Infusion: 10/17/18 23:10 Dose: Infused Azithromycin 500 mg/ Sodium (Chloride) 250 mls @ 250 mls/hr IV.SIG Q24H ROHIT Last Infusion: 10/18/18 01:15 Dose: Infused Sodium Chloride (Ns Inj) 1,000 mls @ 100 mls/hr IV.CONT .Q10H ROHIT Last Admin: 10/18/18 01:40 Dose: 100 mls/hr Azithromycin 500 mg/ Sodium (Chloride) 250 mls @ 250 mls/hr IV.SIG Q24H ROHIT Ceftriaxone Sodium 1,000 mg/ (Sodium Chloride) 100 mls @ 200 mls/hr IV.SIG Q24H ROHIT Insulin Aspart (Novolog Insulin Correctional Sugar Inj) 0 unit SQ ACHS ROHIT; Protocol Lactulose (Lactulose Liq) 30 ml PO DAILY PRN PRN Reason: SEVERE CONSITIPATION Methylprednisolone Sodium Succinate (Solumedrol Inj) 40 mg IV.PUSH Q6H ROHIT Ondansetron HCl (Zofran Inj) 4 mg IV.PUSH Q6H PRN PRN Reason: NAUSEA OR VOMITING Senna/Docusate Sodium (Maite-Colace) 1 tab PO BID ROHIT Sennosides (Senokot) 17.2 mg PO Q12H PRN PRN Reason: Moderate Constipation Allergies Allergy/AdvReac Type Severity Reaction Status Date / Time doxycycline AdvReac Severe VOMITING Unverified 07/07/17 14:14 minocycline AdvReac Severe VOMITING Unverified 07/07/17 14:14 tigecycline AdvReac Severe VOMITING Unverified 07/07/17 14:14 Home Medications Medication Instructions Recorded Confirmed Type lisinopril 10 mg PO DAILY 10/17/18 10/17/18 History pantoprazole 20 mg PO BID 10/17/18 10/17/18 History Exam Vital signs: Vital Signs 10/17/18 15:52 10/17/18 21:51 10/17/18 23:29 Temperature 98.2 F Pulse Rate 81 76 86 Respiratory Rate 16 19 21 Blood Pressure 136/66 133/69 Pulse Oximetry 95 96 Intake & Output 10/17/18 10/17/18 10/18/18 06:59 18:59 06:59 Intake Total 350 / 350 Balance 350 / 350 Weight 63.503 kg Intake: IV 350 / 350 Azithromycin Inj 500 MG In NS 250 / 250 Inj 250 ML @ 250 mls/hr IV.SIG Q24H ROHIT Rx#:[id number] Rocephin Inj 2,000 MG In NS Inj 100 / 100 100 ML @ 200 mls/hr IV.SIG Q24H ROHIT Rx#:[id number] Narrative: PE: GENERAL: Middle-aged white female in no acute distress. SKIN: Focused skin assessment warm and dry. HEENT: PERRLA, EOMI. No scleral icterus or conjunctival pallor. No lid lag or facial droop. CARDIOVASCULAR: Regular rate and rhythm. No obvious murmurs to auscultation. No chest tenderness to palpation. RESPIRATORY: No obvious rhonchi. Occasional wheezing. Breath sounds equal bilaterally. GASTROINTESTINAL: Abdomen soft, non-tender, nondistended. BS normal. MUSCULOSKELETAL: Extremities without clubbing, cyanosis, or edema. No obvious deformities. NEUROLOGICAL: Awake, alert and oriented x4. No focal neurologic deficits. Moving both upper and lower extremities spontaneously. PSYCHIATRIC: Appropriate mood and affect. Insight and judgment normal. Results - Labs CBC & Chem 7: 10/17/18 21:37 10/18/18 00:06 Labs: Short CBC 10/17/18 Range/Units 21:37 WBC 11.9 H (4.0-11.0) th/mm3 Hgb 12.5 (11.6-15.3) gm/dL Hct 36.6 (35.0-46.0) % Plt Count 279 (150-450) th/mm3 BMP 10/18/18 00:06 Sodium 127 L Potassium 4.2 Chloride 97 L Carbon Dioxide 22.2 BUN 5 L Creatinine 0.93 Calcium 8.3 L Cardiac Enzymes 10/18/18 Range/Units 00:06 Troponin I Less than 0.02 L (0.02-0.05) ng/mL Liver Function 10/18/18 Range/Units 00:06 Total Bilirubin 0.1 L (0.2-1.0) mg/dL AST 17 (15-37) U/L ALT 18 (10-53) U/L Alkaline Phosphatase 80 (45-117) U/L Albumin 3.2 L (3.4-5.0) g/dL - Imaging Impressions Chest X-Ray 10/17/18 18:14 CONCLUSION: Mild patchy pneumonia of both mid and lower lungs. Caprini VTE Risk Assessment Caprini VTE Risk Assessment: No/Low Risk (score <= 1) Caprini Risk Assessment Model: Point Value = 1 Point Value = 2 Point Value = 3 Point Value = 5 Age 41-60 Minor surgery BMI > 25 kg/m2 Swollen legs Varicose veins or History of unexplained or recurrent spontaneous Oral contraceptives or hormone replacement Sepsis (< 1 month) Serious lung disease, including pneumonia (< 1 month) Abnormal pulmonary function Acute myocardial infarction Congestive heart failure (< 1 month) History of inflammatory bowel disease Medical patient at bed rest Age 61-74 Arthroscopic surgery Major open surgery (> 45 min) Laparoscopic surgery (> 45 min) Malignancy Confined to bed (> 72 hours) Immobilizing plaster cast Central venous access Age >= 75 History of VTE Family history of VTE Factor V Leiden Prothrombin [id number] Lupus anticoagulant Anticardiolipin antibodies Elevated serum homocysteine Heparin-induced thrombocytopenia Other congenital or acquired thrombophilia Stroke (< 1 month) Elective arthroplasty Hip, pelvis, or leg fracture Acute spinal cord injury (< 1 month) Prophylaxis Regimen: Total Risk Factor Score Risk Level Prophylaxis Regimen 0-1 Low Early ambulation 2 Moderate Order ONE of the following: *Sequential Compression Device (SCD) *Heparin 5000 units SQ BID 3-4 Higher Order ONE of the following medications: *Heparin 5000 units SQ TID *Enoxaparin/Lovenox 40 mg SQ daily (WT < 150 kg, CrCl > 30 mL/min) *Enoxaparin/Lovenox 30 mg SQ daily (WT < 150 kg, CrCl > 10-29 mL/min) *Enoxaparin/Lovenox 30 mg SQ BID (WT < 150 kg, CrCl > 30 mL/min) AND/OR *Sequential Compression Device (SCD) 5 or more Highest Order ONE of the following medications: *Heparin 5000 units SQ TID (Preferred with Epidurals) *Enoxaparin/Lovenox 40 mg SQ daily (WT < 150 kg, CrCl > 30 mL/min) *Enoxaparin/Lovenox 30 mg SQ daily (WT < 150 kg, CrCl > 10-29 mL/min) *Enoxaparin/Lovenox 30 mg SQ BID (WT < 150 kg, CrCl > 30 mL/min) AND *Sequential Compression Device (SCD) Assessment and Plan - Assessment (1) PNA (pneumonia) Code(s): J18.9 - Pneumonia, unspecified organism Status: Acute (2) COPD (chronic obstructive pulmonary disease) Code(s): J44.9 - Chronic obstructive pulmonary disease, unspecified Status: Acute (3) Lactic acidosis Code(s): E87.2 - Acidosis Status: Acute (4) DM (diabetes mellitus) Code(s): E11.9 - Type 2 diabetes mellitus without complications Status: Acute - Plan A/P: 1. PNA: CXR w/ patchy pneumonia both mid and lower lungs, images reviewed, s/ p Rocephin/Zithro in ER, will continue w/ IV Abx, check Sputum Cultures. 2. COPD: Chronic Respiratory Failure w/ Acute Exacerbation. Moderate. S/p Solu-Medrol and DuoNeb w/ persistent SOB/wheezing, continue w/ Solu-Medrol q6h, DuoNeb, Symbicort, Mucinex. Monitor O2. 3. Lactic Acidosis: Lactic Acid 2.9, likely due to dehydration from respiratory losses, no evidence of overt sepsis at this time, IVF, repeat Lactic Acid. 4. DM: Uncontrolled. BS 516 on arrival, states she takes Humulin N 40u in am , and Humulin R sliding scale. Check Hgb A1c, sliding scale w/ Accu-Cheks. 5. DVT Prophylaxis: SCD/Teds 6. Social work for d/c planning as needed. 7. Case discussed w/ ER physician at length, labs/records/imaging reviewed by me.
[2018-10-18] MEDS: MethylPREDNISolone Sod Succinate Inj 40 MG/ML Vial IV.PUSH SCH ×4 (02:54→21:24)
[2018-10-18 04:08] LABS: Baso % (Auto) 0.5 % (0.0-2.0); Hematocrit 35.4 % (35.0-46.0); Hemoglobin 12.2 gm/dL (11.6-15.3); Lymph # (Auto) 1.5 th/mm3 (1.0-4.8); Lymph % (Auto) 16.6 % (9.0-44.0); Mean Corpuscular HGB Conc 34.4 % (32.0-36.0); Mean Corpuscular Hemoglobin 31.1 pg (27.0-34.0); Mean Corpuscular Volume 90.4 fL (80.0-100.0); Mono # (Auto) 0.1 th/mm3 (0.0-0.9); Mono % (Auto) 0.8 % (0.0-8.0); Neut # (Auto) 7.2 th/mm3 (1.8-7.7); Neut % (Auto) 82.1 % (16.0-70.0); Platelet Count 250 th/mm3 (150-450); Red Blood Count 3.92 mil/mm3 (4.00-5.30); Red Cell Distribution Width 13.5 % (11.6-17.2); White Blood Count 8.8 th/mm3 (4.0-11.0)
[2018-10-18 04:38] LABS: Albumin 3.2 g/dL (3.4-5.0); Anion Gap 8 meq/L (5-15); Aspartate Aminotransferase 15 U/L (15-37); Blood Urea Nitrogen 6 mg/dL (7-18); Calcium 8.5 mg/dL (8.5-10.1); Carbon Dioxide 21.7 meq/L (21.0-32.0); Chloride 101 meq/L (98-107); Glomerular Filtration Rate 71 mL/min (>89); Glucose,Random 333 mg/dL (74-106); Potassium 4.2 meq/L (3.5-5.1); Sodium 131 meq/L (136-145)
[2018-10-18 04:43] LABS: Alanine Aminotransferase 19 U/L (10-53); Alkaline Phosphatase 81 U/L (45-117); Total Protein 7.6 g/dL (6.4-8.2)
[2018-10-18] MEDS: Insulin NovoLOG Aspart Correctional Sugar Inj SQ SCH ×4 (08:17→21:24)
[2018-10-18] MEDS: guaiFENesin 600 MG ER Tablet PO SCH ×2 (10:05→21:24)
[2018-10-18] MEDS: Senna/Docusate Sodium 8.6/50 MG Tablet PO SCH ×2 (10:05→21:24)
[2018-10-18] MEDS: Budesonide-Formoterol 160/4.5 MCG 6 GM Inhaler INH SCH ×2 (10:33→21:38)
[2018-10-18 12:48] LABS: Hemoglobin A1c 7.7 % (4.3-6.0)
[2018-10-18] MEDS ORDERED: Pantoprazole Sodium 20 MG DR Tablet PO ONE (16:15)
[2018-10-18] MEDS ORDERED: Aluminum/Magnesium/Simethacone Susp 30 ML UDC PO PRN (16:46)
[2018-10-18] MEDS ORDERED: Melatonin 5 MG Tablet PO PRN (16:49)
--- NOTE | 2018-10-18 16:56 | P.PN ---
Subjective Interval history: Follow-up diabetes mellitus and pneumonia. Hyperglycemic on NPH. Denies SOB Physical Exam Vital signs: Vital Signs 10/17/18 21:51 10/17/18 23:29 10/18/18 06:31 Temperature Pulse Rate 76 86 75 Respiratory Rate 19 18 Blood Pressure 133/69 121/63 Pulse Oximetry 96 94 L 10/18/18 09:58 Temperature 98.3 F Pulse Rate 82 Respiratory Rate 20 Blood Pressure 130/71 Pulse Oximetry 94 L Intake & Output 10/17/18 10/18/18 10/18/18 18:59 06:59 18:59 Intake Total 350 / 350 1000 / 1000 Balance 350 / 350 1000 / 1000 Weight 63.503 kg 63.893 kg Intake: IV 350 / 350 1000 / 1000 NS Inj 1,000 ML @ 100 mls/hr IV 1000 / 1000 .CONT .Q10H ROHIT Rx#:[id number] Azithromycin Inj 500 MG In NS 250 / 250 Inj 250 ML @ 250 mls/hr IV.SIG Q24H ROHIT Rx#:[id number] Rocephin Inj 2,000 MG In NS Inj 100 / 100 100 ML @ 200 mls/hr IV.SIG Q24H ROHIT Rx#:[id number] Other: Weight On Admission 63.893 kg Narrative: GENERAL: Middle-aged white female in no acute distress. SKIN: Focused skin assessment warm and dry. CARDIOVASCULAR: Regular rate and rhythm. No obvious murmurs to auscultation. No chest tenderness to palpation. RESPIRATORY: No obvious rhonchi. Breath sounds equal bilaterally. GASTROINTESTINAL: Abdomen soft, non-tender, nondistended. BS normal. MUSCULOSKELETAL: Extremities without clubbing, cyanosis, or edema. No obvious deformities. NEUROLOGICAL: Awake, alert and oriented x4. No focal neurologic deficits. Moving both upper and lower extremities spontaneously. PSYCHIATRIC: Appropriate mood and affect. Insight and judgment normal. Results - Labs CBC & Chem 7: 10/18/18 03:56 10/18/18 03:56 Laboratory Results - last 24 hr 10/17/18 10/17/18 10/18/18 21:37 21:37 00:06 WBC 11.9 H RBC 4.09 Hgb 12.5 Hct 36.6 MCV 89.5 MCH 30.6 MCHC 34.3 RDW 13.5 Plt Count 279 MPV 8.7 Neut % (Auto) 87.0 H Lymph % (Auto) 11.3 [place] % (Auto) 1.1 Eos % (Auto) 0.3 Baso % (Auto) 0.3 Neut # (Auto) 10.4 H Lymph # (Auto) 1.3 [place] # (Auto) 0.1 Eos # (Auto) 0.0 Baso # (Auto) 0.0 WBC Differential . Differential Comment Auto diff final Sodium 127 L Potassium 4.2 Chloride 97 L Carbon Dioxide 22.2 Anion Gap 8 BUN 5 L Creatinine 0.93 Estimated GFR 64 L POC Glucose Random Glucose 516 H* Lactic Acid 2.9 H Calcium 8.3 L Total Bilirubin 0.1 L AST 17 ALT 18 Alkaline Phosphatase 80 Troponin I Less than 0.02 L Total Protein 7.7 Albumin 3.2 L TSH 0.836 10/18/18 10/18/18 10/18/18 03:56 03:56 03:56 WBC 8.8 RBC 3.92 L Hgb 12.2 Hct 35.4 MCV 90.4 MCH 31.1 MCHC 34.4 RDW 13.5 Plt Count 250 MPV 8.0 Neut % (Auto) 82.1 H Lymph % (Auto) 16.6 [place] % (Auto) 0.8 Eos % (Auto) 0.0 Baso % (Auto) 0.5 Neut # (Auto) 7.2 Lymph # (Auto) 1.5 [place] # (Auto) 0.1 Eos # (Auto) 0.0 Baso # (Auto) 0.0 WBC Differential . Differential Comment Auto diff final Sodium 131 L Potassium 4.2 Chloride 101 Carbon Dioxide 21.7 Anion Gap 8 BUN 6 L Creatinine 0.85 Estimated GFR 71 L POC Glucose Random Glucose 333 H D Lactic Acid 3.7 H Calcium 8.5 Total Bilirubin 0.1 L AST 15 ALT 19 Alkaline Phosphatase 81 Troponin I Total Protein 7.6 Albumin 3.2 L TSH 10/18/18 11:42 WBC RBC Hgb Hct MCV MCH MCHC RDW Plt Count MPV Neut % (Auto) Lymph % (Auto) [place] % (Auto) Eos % (Auto) Baso % (Auto) Neut # (Auto) Lymph # (Auto) [place] # (Auto) Eos # (Auto) Baso # (Auto) WBC Differential Differential Comment Sodium Potassium Chloride Carbon Dioxide Anion Gap BUN Creatinine Estimated GFR POC Glucose 416 H Random Glucose Lactic Acid Calcium Total Bilirubin AST ALT Alkaline Phosphatase Troponin I Total Protein Albumin TSH Microbiology 10/17/18 21:30 Blood - Peripheral Aerobic Blood Culture - Preliminary No growth in 1 day 10/17/18 21:30 Blood - Peripheral Anaerobic Blood Culture - Preliminary No growth in 1 day 10/17/18 21:37 Blood - Peripheral Aerobic Blood Culture - Preliminary No growth in 1 day 10/17/18 21:37 Blood - Peripheral Anaerobic Blood Culture - Preliminary No growth in 1 day 10/17/18 18:35 Nasal Wash Influenza Types A,B Antigen - Final Negative for FLU A and B antigen Infection due to influenza A or B cannot be ruled out since the antigen present in the sample may be below the detection limit of the test. - Imaging Impressions Chest X-Ray 10/17/18 18:14 CONCLUSION: Mild patchy pneumonia of both mid and lower lungs. - Procedures none Assessment and Plan - Assessment (1) PNA (pneumonia) Code(s): J18.9 - Pneumonia, unspecified organism Status: Acute (2) COPD (chronic obstructive pulmonary disease) Code(s): J44.9 - Chronic obstructive pulmonary disease, unspecified Status: Acute (3) Lactic acidosis Code(s): E87.2 - Acidosis Status: Acute (4) DM (diabetes mellitus) Code(s): E11.9 - Type 2 diabetes mellitus without complications Status: Acute - Plan 1. PNA: CXR w/ patchy pneumonia both mid and lower lungs, images reviewed, s/ p Rocephin/Zithro in ER, will continue w/ IV Abx, check Sputum Cultures, urinary pneumococcal and Legionella antigen. 2. COPD: Chronic Respiratory Failure w/ Acute Exacerbation. Moderate. S/p Solu-Medrol and DuoNeb w/ persistent SOB/wheezing, continue w/ Solu-Medrol q6h, DuoNeb, Symbicort, Mucinex. Monitor O2. 3. Lactic Acidosis: Lactic Acid 2.9, likely due to dehydration from respiratory losses, no evidence of overt sepsis at this time, IVF, repeat Lactic Acid. 4. DM: Uncontrolled. BS 516 on arrival, states she takes NPH, and Humulin R sliding scale. Check Hgb A1c, sliding scale w/ Accu-Cheks. 5. DVT Prophylaxis: SCD/Teds
[2018-10-18] MEDS: Gabapentin 300 MG Capsule PO SCH (17:37)
[2018-10-18] MEDS ORDERED: Azithromycin Inj 500 MG in Sodium Chlor 0.9% Inj 250 ML IV.SIG SCH (21:00)
[2018-10-18] MEDS: Pantoprazole Sodium 20 MG DR Tablet PO SCH (21:24)
[2018-10-19] MEDS: MethylPREDNISolone Sod Succinate Inj 40 MG/ML Vial IV.PUSH SCH ×2 (05:43→13:15)
[2018-10-19] MEDS: Budesonide-Formoterol 160/4.5 MCG 6 GM Inhaler INH SCH (08:18)
[2018-10-19] MEDS: Pantoprazole Sodium 20 MG DR Tablet PO SCH (08:19)
[2018-10-19] MEDS: Senna/Docusate Sodium 8.6/50 MG Tablet PO SCH (08:19)
[2018-10-19] MEDS: guaiFENesin 600 MG ER Tablet PO SCH (08:19)
[2018-10-19] MEDS: Gabapentin 300 MG Capsule PO SCH ×2 (08:19→13:15)
[2018-10-19] MEDS: Sod Chloride 0.9% Inj 1,000 ML IV.CONT SCH (08:21)
[2018-10-19] MEDS: Insulin NovoLOG Aspart Correctional Sugar Inj SQ SCH ×2 (08:25→11:44)
[2018-10-19] MEDS ORDERED: Lisinopril 10 MG Tablet PO SCH (09:00)
[2018-10-19 09:29] VITALS: RESP 18
[2018-10-19 12:18] VITALS: BP 127/61; PULSE 79; TEMP 97.8; O2SAT 93
--- NOTE | 2018-10-19 14:10 | P.PN ---
Subjective Interval history: Follow-up pneumonia. Patient is doing better and wants to go home Physical Exam Vital signs: Vital Signs 10/18/18 16:00 10/18/18 23:01 10/19/18 08:00 Temperature 97.9 F 98.4 F 97.9 F Pulse Rate 89 83 80 Respiratory Rate 20 16 18 Blood Pressure 159/76 H 147/77 H 148/74 H Pulse Oximetry 94 L 94 L 10/19/18 12:00 Temperature 97.8 F Pulse Rate 79 Respiratory Rate 18 Blood Pressure 127/61 Pulse Oximetry 93 L Intake & Output 10/18/18 10/19/18 10/19/18 18:59 06:59 18:59 Intake Total 1240 / 1240 1350 / 1350 Output Total 0 / 0 Balance 1240 / 1240 1350 / 1350 Weight 63.893 kg 66.1 kg Intake: IV 1000 / 1000 1350 / 1350 NS Inj 1,000 ML @ 100 mls/hr IV 1000 / 1000 1000 / 1000 .CONT .Q10H ROHIT Rx#:[id number] Azithromycin Inj 500 MG In NS 250 / 250 Inj 250 ML @ 250 mls/hr IV.SIG Q24H ROHIT Rx#:[id number] Rocephin Inj 1,000 MG In NS Inj 100 / 100 100 ML @ 200 mls/hr IV.SIG Q24H ROHIT Rx#:[id number] Oral 240 / 240 Output: Urine 0 / 0 Other: # Voids 1 Weight On Admission 63.893 kg Narrative: GENERAL: Middle-aged white female in no acute distress. SKIN: Focused skin assessment warm and dry. CARDIOVASCULAR: Regular rate and rhythm. No obvious murmurs to auscultation. No chest tenderness to palpation. RESPIRATORY: No obvious rhonchi. Breath sounds equal bilaterally. GASTROINTESTINAL: Abdomen soft, non-tender, nondistended. BS normal. MUSCULOSKELETAL: Extremities without clubbing, cyanosis, or edema. No obvious deformities. NEUROLOGICAL: Awake, alert and oriented x4. No focal neurologic deficits. Moving both upper and lower extremities spontaneously. Results - Labs CBC & Chem 7: 10/18/18 03:56 10/18/18 03:56 Laboratory Results - last 24 hr 10/18/18 10/18/18 10/18/18 03:56 16:41 20:07 POC Glucose 248 H 378 H Hemoglobin A1c 7.7 H 10/19/18 10/19/18 08:19 11:06 POC Glucose 261 H 204 H Hemoglobin A1c Microbiology 10/18/18 16:30 Urine - Clean Catch Urine Streptococcus pneumoniae Antigen ( M - Final Presumptive negative for streptococcus pneumoniae antigen, suggesting no current or recent infection. Infection due to Streptococcus pneumoniae cannot be ruled out since the antigen present in the sample may be below the detection limit of the test. 10/18/18 16:30 Urine - Clean Catch Urine Legionella Antigen - Final Presumptive negative for Legionella pneumophila serogroup 1 antigen in urine, suggesting no recent or recurrent infection. Infection due to Legionella cannot be ruled out since other serogroups and species may cause disease, antigen may not be present in urine in early infection, and the level of antigen present in the urine may be below the detection limit of the test. 10/17/18 21:30 Blood - Peripheral Aerobic Blood Culture - Preliminary No growth in 2 days 10/17/18 21:30 Blood - Peripheral Anaerobic Blood Culture - Preliminary No growth in 2 days 10/17/18 21:37 Blood - Peripheral Aerobic Blood Culture - Preliminary No growth in 2 days 10/17/18 21:37 Blood - Peripheral Anaerobic Blood Culture - Preliminary No growth in 2 days - Imaging ITS Impressions Chest X-Ray 10/17/18 18:14 CONCLUSION: Mild patchy pneumonia of both mid and lower lungs. - Procedures none Assessment and Plan - Assessment (1) PNA (pneumonia) Code(s): J18.9 - Pneumonia, unspecified organism Status: Acute (2) COPD (chronic obstructive pulmonary disease) Code(s): J44.9 - Chronic obstructive pulmonary disease, unspecified Status: Acute (3) Lactic acidosis Code(s): E87.2 - Acidosis Status: Acute (4) DM (diabetes mellitus) Code(s): E11.9 - Type 2 diabetes mellitus without complications Status: Acute - Plan 1. PNA: CXR w/ patchy pneumonia both mid and lower lungs, images reviewed, s/ p Rocephin/Zithro in ER. Stable neg urinary pneumococcal and Legionella antigen. Blood cultures negative today. Switch to p.o. Ceftin and Zithromax and repeat chest x-ray in 6 weeks 2. COPD: Chronic Respiratory Failure w/ Acute Exacerbation. Improved switch to p.o. prednisone and DuoNeb, Symbicort, Mucinex. Monitor O2. 3. Lactic Acidosis: Lactic Acid 2.9, likely due to dehydration from respiratory losses, no evidence of overt sepsis at this time, IVF, repeat Lactic Acid. 4. DM: Uncontrolled. BS 516 on arrival, states she takes NPH, and Humulin R sliding scale. A1c 7.7. Improving continue NPH and sliding scale w/ Accu- Cheks. 5. DVT Prophylaxis: SCD/Teds Discharge Planning: Discharge patient to home Condition on discharge: Improved earlier than anticipated Regular Diet as tolerated Ad Dona activity Rx written: Symbicort, prednisone, Ceftin and Zithromax. Chest x-ray in 6 weeks Follow-up with primary care physician
[2018-10-20] MEDS ORDERED: predniSONE 20 MG Tablet PO SCH (09:00)
== END 2018-10-19 17:07 | disposition home or self-care (01) ==
LOC: NEPB 15:48 → NEDA 10-18 01:30 → N07 10-18 10:42
PROVIDERS: ADMIT Internal Medicine; ATTEND Internal Medicine